=== PATIENT | female | born 1960 | race Caucasian/White ===

== ENCOUNTER → 2021-10-07 11:03 | Outpatient (CLI) | payer OTHER, SELFPAY | PROVIDERS: PCP Family Medicine; Visit Provider Family Medicine | DX: Z23 Encounter for immunization (principal) | CPT/HCPCS: 0004A; 91300 ==

== ENCOUNTER 2021-11-09 16:35 | Outpatient (CLI) | payer OTHER, SELFPAY ==
[2021-11-09 18:30] LABS: Absolute Lymphocyte Count 1.78 X10^3/uL (0.83-4.51); Basophil# 0.04 X10^3/uL; Basophil% 0.7 % (0-1); Eosinophil# 0.11 X10^3/uL; Hematocrit 41.3 % (37-47); Lymphocyte # 1.78 X10^3/ul (0.83-4.51); Lymphocyte % 32.1 % (19-41); Mean Corp Hgb Conc 31.5 g/dL (32-36); Mean Corpuscular Hgb 29.7 pg (27.0-32.0); Mean Corpuscular Volume 94.3 fL (81-99); Mean Platelet Vol. 11.8 fl (6.2-12.0); Monocyte# 0.57 X10^3/uL; Monocyte% 10.3 % (0-10); NRBC Flagged by Analyzer 0 % (0-5); Neutrophil # 3.03 X10^3/uL (2.7-7.7); Neutrophil % 54.7 % (47-70); Platelet Count 262 K/mm3 (150-450); RBC Distribution Width CV 13.8 % (11.6-14.6); RBC Distribution Width SD 47.9 fl (35.1-43.9); Red Blood Count 4.38 M/mm3 (4.2-5.4); White Blood Count 5.5 K/mm3 (4.4-11.0)
[2021-11-09 18:50] LABS: T3 Total - Triiodothyronine 0.75 ng/mL (0.6-1.81)
[2021-11-09 18:59] LABS: Erythrocyte Sedimentation Rate 12 mm/hr (0-30)
[2021-11-09 19:01] LABS: ALB/GLOB Ratio 1.1 RATIO (0.9-2.4); AST(SGOT) 19 U/L (15-37); Alanine Aminotransfer ALT/SGPT 24 U/L (13-56); Albumin, Serum 4.1 g/dL (3.2-5.0); Alkaline Phosphatase 67 U/L (45-117); Anion Gap 5 (5-15); BUN 22 mg/dL (7-18); BUN/Creat Ratio 26.8 RATIO (10-20); Calcium,Total 9.1 mg/dL (8.5-10.1); Chloride 104 mmol/L (98-107); Creatinine, Serum 0.82 mg/dL (0.55-1.02); EST Glomerular Filtration Rate 75 mL/min (>60); Est Glom Filt Rate - Afr Amer 91 mL/min (>60); Globulin 3.9 g/dL (2.2-4.2); Glucose 88 mg/dL (74-106); Potassium 4.2 mmol/L (3.5-5.1); Sodium Level 140 mmol/L (136-145); Thyroid Stim Hormone (TSH) 1.47 uIU/mL (0.358-3.74)
[2021-11-10 08:45] LABS: PTHIN 55.3 pg/mL (18.4-80.1)
[2021-11-11 16:24] LABS: Thyroid Peroxidase AB 8 IU/mL (0-34)
== END 2021-11-09 23:59 | disposition short-term general hospital (02) ==
LOC: MTLAB 16:38
PROVIDERS: PCP Family Medicine; Referring Provider Dermatology Pediatric Dermatology; Visit Provider Dermatology Pediatric Dermatology
DX: L20.89 Other atopic dermatitis (principal); T50.905A Adverse effect of unspecified drugs, medicaments and biological substances, initial encounter; Z79.899 Other long term (current) drug therapy
CPT/HCPCS: 36415; 80053; 82330; 83970; 84439; 84443; 84480; 85025; 85652; 86038; 86376

== ENCOUNTER → 2023-06-30 | Outpatient (CLI) | payer OTHER, SELFPAY ==
--- NOTE | 2023-06-30 17:20 | RAD_ITS ---
STUDY: X-RAY - RIGHT KNEE REASON FOR EXAM: Female, 63 years old. Knee pain. TECHNIQUE: 4 view(s) of the knee. COMPARISON: None. FINDINGS: Normal visualized distal femur. Normal visualized proximal tibia and fibula. Normal proximal tibiofibular articulation. Normal medial femorotibial compartment. Normal lateral femorotibial compartment. Normal patellofemoral articulation. Linear 8 mm in diameter intra-articular osteochondral body projected posteriorly on the lateral view. RAD/Knee 4 or More Views IMPRESSION: Intra-articular osteochondral body. No other abnormality. Electronically Signed: Fidel Heard MD at 11:34 EDT ,
== END | disposition home or self-care (01) ==
LOC: RAD 17:10
PROVIDERS: PCP Family Medicine; Referring Provider Family Medicine; Visit Provider Family Medicine
DX: M25.561 Pain in right knee (principal)
CPT/HCPCS: 73564

== ENCOUNTER → 2023-07-27 | Outpatient (CLI) | payer OTHER, SELFPAY ==
[2023-07-27 17:38] LABS: Hematocrit 42.3 % (37-47); Mean Corp Hgb Conc 30.7 g/dL (32-36); Mean Corpuscular Volume 94.2 fL (81-99); Mean Platelet Vol. 11.6 fl (6.2-12.0); Platelet Count 257 K/mm3 (150-450); RBC Distribution Width CV 15.3 % (11.6-14.6); RBC Distribution Width SD 53.4 fl (35.1-43.9); Red Blood Count 4.49 M/mm3 (4.2-5.4); White Blood Count 5.2 K/mm3 (4.4-11.0)
[2023-07-27 17:41] LABS: Erythrocyte Sedimentation Rate 5 mm/hr (0-30)
[2023-07-27 18:16] LABS: CRP 4.54 mg/L (0.0-3.0); Ferritin 24 ng/mL (8-252); Iron 42 ug/dL (50-170); Iron Binding Capacity,Total 421 ug/dL (250-450)
== END | disposition home or self-care (01) ==
PROVIDERS: PCP Family Medicine; Referring Provider Internal Medicine Gastroenterology; Visit Provider Internal Medicine Gastroenterology
DX: D50.9 Iron deficiency anemia, unspecified (principal)
CPT/HCPCS: 36415; 82728; 83540; 83550; 85027; 85652; 86140

== ENCOUNTER → 2023-08-03 | Outpatient (CLI) | payer OTHER, SELFPAY ==
--- NOTE | 2023-08-03 16:46 | US_ITS ---
Exam: Ultrasound of the soft tissues of the back. HISTORY: Palpable mass. FINDINGS: No abnormality seen. No mass. No fluid collection. Electronically Signed: Gio Balderas MD at 17:37 EDT , US/Ext Non Vasc Limited/Soft Tiss IMPRESSION: undefined
== END | disposition home or self-care (01) ==
LOC: US 16:44
PROVIDERS: PCP Family Medicine; Referring Provider Family Medicine; Visit Provider Family Medicine
DX: M79.89 Other specified soft tissue disorders (principal)
CPT/HCPCS: 76882